=== PATIENT | male | born 1965 | race Caucasian/White ===

== ENCOUNTER → 2016-09-15 | Outpatient (CLI) | payer OTHER ==
--- NOTE | 2016-09-15 09:39 | DX ---
Chest, Two Views 0916 hours History: R 05, cough. Comparison: None. Findings: Cardiac silhouette is within normal range. No pneumonia, congestive heart failure, pleura l effusion, or pneumothorax. Mild bilateral Peribronchial thickening. Degenerative osteophytes in the mid to lower thoracic spine. Possible right lower lobe 5 mm pulmonary nodule. Impression: 1. Mild bronchitis. 2. No definite focal pneumonia. 3. Possible right lower lobe 5 mm pulmonary nodule. If there are no prior chest x-rays for comparison , recommend noncontrast CT chest for further evaluation. A Follow-Up Required test result notification was sent via the [employer] service, 9:37:11 AM, 09/15/2016, [employer] Message ID [id number].
== END ==
LOC: FIMAGING 09:18
PROVIDERS: ATTEND Family Medicine
DX: R05 Cough (principal)

== ENCOUNTER → 2016-09-27 | Outpatient (CLI) | payer OTHER ==
--- NOTE | 2016-09-27 11:52 | CT ---
CT chest without contrast HISTORY: The patient had a chest radiograph on September 15, 2016, for history of cough, reported to edel carlin a possible 5 mm nodule in the right lower lobe. TECHNIQUE: Multidetector helical CT was performed using dose reduction technology from superior thora cic inlet through the diaphragm. FINDINGS: No pulmonary masses are found. The finding on chest radiograph is attributed to superimposi tion of normal pulmonary vessels. No pleural effusion and no adenopathy. No pulmonary infiltrate. Hea rt size is normal. Coronary calcification is mild. Adrenal glands are normal. Bones are intact. Midth oracic vertebral osteophytes are large, projecting laterally, causing no problem in the spinal canal. IMPRESSION: Negative.
== END ==
LOC: CIMAGING 10:41
PROVIDERS: ATTEND Family Medicine
DX: R05 Cough (principal); Z03.89 Encounter for observation for other suspected diseases and conditions ruled out
CPT/HCPCS: 71250-PO